=== PATIENT | male | born 1960 | race Caucasian/White ===

== ENCOUNTER 2025-03-02 12:01 | Emergency (ER) | payer OTHER, SELFPAY ==
[2025-03-02 12:05] VITALS: BP 169/83
[2025-03-02] MEDS: LIDOCAINE 4% PATCH 1 PATCH TOPICAL (13:42)
[2025-03-02] MEDS: DELTASONE 50 MG PO (13:42)
[2025-03-02] MEDS: TORADOL 15 MG IM (13:42)
--- NOTE | 2025-03-02 13:46 | ED.GENMED ---
History of Present Illness
General
Chief Complaint: Back Pain
Time Seen by Provider: 03/02/25 13:06
History of Present Illness
History of Present Illness:
64-year-old male with history of CAD status post stenting presenting to the emergency department for back pain. Patient [place] [facility] [place] He tripped over a tree stump and has since been
having significant right-sided lower back pain. Denies any numbness or tingling to his lower extremity. Denies any weakness. Pain radiates to the groin. He has not tried any medication for pain. Denies fever. Denies any direct trauma to the
back. Reports history of sciatica in the past. Denies chest pain, difficulty breathing, abdominal pain or additional acute medical complaints.
Phy Exam
Physical Exam
Physical Exam:
General: Well-appearing, no clinical signs of dehydration, nontoxic and in no acute distress
HEENT: protecting airway
Neck: appears supple
CV: Normal heart rate
Resp: No accessory muscle use, no increased work of breathing
Abd: Soft and non-distended, no tenderness to palpation
Extremities: No deformities, no swelling, no erythema, pulses and sensation intact. Generalized tenderness to the right lumbar back. No significant midline tenderness
Neuro: alert, no focal neurologic deficit
: deferred
Rectal: deferred
Psych: Normal affect
Skin: Intact
Course
Orders/Labs/Results
Orders:
Orders
03/02/25 13:29
Ketorolac [Toradol] 15 mg IM NOW STA
Lumbar Spine Complete, 4 View [CR Lumbar Spine Comp Min 4 Vw*] Urgent
Comment:
Reason For Exam: pain, R>L
03/02/25 13:30
Lidocaine [Lidocaine 4% Patch] 1 patch TOPICAL ONCE ONE
Apply Lidocaine patch(s) to:: right lumbar
Prednisone [Deltasone] 50 mg PO NOW STA
Vital Signs
Initial and Last Documented VS:
Initial Vital Signs
Temp Pulse Resp BP Pulse Ox
98.5 F 69 16 169/83 98
03/02/25 12:05 03/02/25 12:05 03/02/25 12:05 03/02/25 12:05 03/02/25 12:05
Last Documented Vital Signs
Temp Pulse Resp BP Pulse Ox
98.5 F 69 16 169/83 98
03/02/25 12:05 03/02/25 12:05 03/02/25 12:05 03/02/25 12:05 03/02/25 14:15
MDM/Problems Addressed
MDM/Problems Addressed:
64-year-old male presenting to the emergency department for right-sided back pain after jumping over a tree. Denies direct trauma. Vital signs are significant for mild hypertension.
On exam patient is resting comfortably, no acute distress. Generalized tenderness to the right lumbar back. Symptoms appear most consistent with musculoskeletal etiology. Do not suspect any concerning etiology to patient's presenting symptoms. Do
not suspect any spinal fracture in the absence of any direct trauma, and no midline spinal tenderness. No fever, systemic symptoms, or midline tenderness, without concern for spinal abscess or infection. No red flag such as bowel or bladder
incontinence, focal weakness, or any sensory deficits on exam, without present concern for spinal compression. Toradol and prednisone administered for patient's pain. Close. X-ray imaging.
15:50 -x-ray without sign of fracture. On reassessment patient remained stable, notes improvement of pain. Feel stable for discharge with continued outpatient supportive therapy. Will prescribe steroid and ibuprofen. Return precautions discussed
with patient verbalized understanding
*Pulse Oximetry
SaO2: 98
Oxygen Mode of Delivery: Room air
Patient hypoxic: no
*Critical Care Note
Total Time (30-74mins, 75-104mins- exclusive of procedures): Not Applicable
ED Attending Note
-
Portions of this chart may have been created with voice recognition software.� Occasional wrong word or��sound alike� substitutions may have occurred due to the inherent limitations of voice recognition software.
Discharge Plan
Departure
Referrals:
Scarlet Gay NP [Family Provider, General]
Interventions
Interventions:
*Risk Screen - Suicide Last Done: 03/02/25 12:05
*General Assessment Last Done: 03/02/25 12:05
*Neglect/Abuse Screening Last Done: 03/02/25 12:05
*ED- Fall Risk Assessment Last Done: 03/02/25 12:05
*ED COVID-19 Vaccine History Last Done: 03/02/25 12:05
ED-Musculoskeletal Assessment Last Done: 03/02/25 14:01
Discharge Date and Time
Print Language: LAO
[2025-03-02 16:06] VITALS: BP 149/94
== END 2025-03-02 16:07 | disposition home or self-care (01) ==
LOC: EMR 12:01
PROVIDERS: EMERGENCY PHYSICIAN Student in an Organized Health Care Education/Training Program; FAMILY PHYSICIAN Nurse Practitioner Gerontology
DX: M54.50 Low back pain, unspecified (principal); I10 Essential (primary) hypertension; I25.10 Atherosclerotic heart disease of native coronary artery without angina pectoris; Z95.5 Presence of coronary angioplasty implant and graft
CPT/HCPCS: 96372; 99284; 72110; 99282